=== PATIENT | male | born 1950 | race Two or more races ===

== ENCOUNTER 2023-08-07 08:59 | Emergency (ER) | payer OTHER ==
[~2023-08-07] VITALS: Ht 182.9 cm; Wt 82.5 kg
[2023-08-07] MEDS: KETOROLAC TROMETH 60MG/2ML VIAL IM ONE (11:54)
[2023-08-07 14:04] VITALS: BP 132/86; PULSE 76; RESP 17; TEMP 97.8; O2SAT 96
== END 2023-08-07 14:05 | disposition home or self-care (01) ==
LOC: ER 08:59
DX: S01.01XA Laceration without foreign body of scalp, initial encounter (principal); S30.0XXA Contusion of lower back and pelvis, initial encounter; M62.838 Other muscle spasm; R51.9 Headache, unspecified; E11.9 Type 2 diabetes mellitus without complications; Z85.9 Personal history of malignant neoplasm, unspecified; W17.89XA Other fall from one level to another, initial encounter; Y93.89 Activity, other specified; Y92.89 Other specified places as the place of occurrence of the external cause; Y99.8 Other external cause status
CPT/HCPCS: 12031; 70450; 71045; 72125; 72131; 96372; 99285; J1885